=== PATIENT | male | born 1945 | race Caucasian/White ===

== ENCOUNTER 2018-09-19 18:37 | Emergency (ER) | payer MEDICARE, OTHER ==
[~2018-09-19] VITALS: Ht 188 cm; Wt 110.7 kg
[2018-09-19] MEDS ORDERED: KETOROLAC TROMETHAMINE 30 MG INJ ONE (19:21)
[2018-09-19] MEDS ORDERED: KETOROLAC TROMETHAMINE 30 MG INJ IM ONE (19:30)
--- NOTE | 2018-09-19 19:34 | NUR ---
Patient discharged to home in stable conditon. Written and verbal after care instructions given. Patient verbalizes understanding of instructions.
[2018-09-19 19:36] VITALS: BP 138/85
== END 2018-09-19 19:43 | disposition home or self-care (01) ==
LOC: ER 18:37
DX: M16.12 Unilateral primary osteoarthritis, left hip (principal); G89.29 Other chronic pain; M25.552 Pain in left hip; E11.9 Type 2 diabetes mellitus without complications
CPT/HCPCS: 96372; 99283; J1885; A4663